=== PATIENT | female | born 1950 | race Caucasian/White ===

== ENCOUNTER → 2018-04-04 10:24 | Outpatient (CLI) | payer OTHER, SELFPAY ==
[2018-04-04 10:51] LABS: Add Manual Diff / Slide Review NO; Basophils Percent Auto 1.3 % (0-2); Eosinophils Percent Auto 2.4 % (2-4); Hemoglobin 15.5 g/dL (12.0-16.0); Lymphocytes Percent Auto 32.3 % (25-40); Mean Corpuscular HGB Conc 33.7 % (30-36); Mean Corpuscular Hemoglobin 31.8 PG (26-34); Mean Corpuscular Volume 94.4 fL (80-100); Neutrophils Absolute Auto 2200 /uL (3000-5900); Platelet Count 294 X10^3/uL (150-400); Red Blood Cell Count 4.87 X10^6/uL (4.0-5.2); Red Cell Distribution Width 13.5 % (11.6-14.8); White Blood Cell Count 4.2 X10^3/uL (4.5-11.0)
[2018-04-04 11:02] LABS: BUN Creatinine Ratio 31.7 (6-22); Blood Urea Nitrogen 19 mg/dL (7-17); Carbon Dioxide 25 mmol/L (22-32); Chloride 104 mmol/L (98-107); Cholesterol 256 mg/dL (140-199); Estimated Glomerular Filt Rate > 60.0 mL/min (>60); Glucose 107 mg/dL (80-110); HDL Cholesterol 84 mg/dL (40-60); HEMOLYSIS < 15 (0-50); LDL Cholesterol Calculated 147 mg/dL (<100); Potassium 4.1 mmol/L (3.4-5.1); Sodium 142 mmol/L (137-145); Triglycerides 124 mg/dL (35-150)
[2018-04-04 11:32] LABS: TSH w/ Reflex to FT4 2.74 uIU/mL (0.47-4.68)
== END ==
PROVIDERS: Family Provider Family Medicine; PCP Family Medicine; Visit Provider Internal Medicine
DX: Z00.00 Encounter for general adult medical examination without abnormal findings (principal); E03.9 Hypothyroidism, unspecified
CPT/HCPCS: 36415; 80048; 80061; 84443; 85025

== ENCOUNTER → 2018-04-10 13:33 | Outpatient (CLI) | payer OTHER, SELFPAY ==
--- NOTE | 2018-04-10 | DI.RAD.S_ITS ---
This blank DEXA report has been sent in error by the PACS system. The correct and the complete report will be forthcoming in 1-2 days. Thank you for your patience and understanding. Dictated by: Abdulkadir Guzman M.D. on 04/10/2018 at 15:34 Approved by: Abdulkadir Guzman M.D. on 04/10/2018 at 15:34
== END ==
PROVIDERS: PCP Internal Medicine; Visit Provider Internal Medicine
DX: M85.832 Other specified disorders of bone density and structure, left forearm (principal); Z78.0 Asymptomatic menopausal state; E07.9 Disorder of thyroid, unspecified; Z87.891 Personal history of nicotine dependence
CPT/HCPCS: 77080

== ENCOUNTER → 2018-07-16 08:41 | Outpatient (CLI) | payer MEDICARE, SELFPAY ==
[2018-07-16 09:55] LABS: Cholesterol 220 mg/dL (140-199); HDL Cholesterol 65 mg/dL (40-60); LDL Cholesterol Calculated 130 mg/dL (<100); Triglycerides 127 mg/dL (35-150)
== END ==
PROVIDERS: PCP Internal Medicine; Visit Provider Internal Medicine
DX: E78.9 Disorder of lipoprotein metabolism, unspecified (principal); E79.9 Disorder of purine and pyrimidine metabolism, unspecified
CPT/HCPCS: 36415; 80061

== ENCOUNTER → 2019-03-27 13:54 | Outpatient (CLI) | payer MEDICARE, SELFPAY ==
[2019-03-27 15:52] LABS: Free T3, Triiodothyronine Free 2.91 pg/mL (2.77-5.27); Free T4, Direct Thyroxine 1.37 ng/dL (0.78-2.19)
== END ==
PROVIDERS: PCP Internal Medicine; Visit Provider Internal Medicine
DX: E03.9 Hypothyroidism, unspecified (principal)
CPT/HCPCS: 36415; 84439; 84443; 84481

== ENCOUNTER → 2019-10-14 12:58 | Outpatient (CLI) | payer MEDICARE, SELFPAY ==
--- NOTE | 2019-10-14 | DI.US.S_ITS ---
LIMITED ULTRASOUND OF LEFT BREAST AND AXILLA: 10/14/2019 CLINICAL: Palpable left breast lump. Comparison is made to exams dated: 10/14/2019 mammogram - [facility], 07/03/2018 mammogram, 08/22/2016 mammogram, and 02/26/2012 mammogram - [facility]. Color flow and real-time ultrasound of the left breast 7 o'clock, and axilla regions were performed. Santana scale images of the real-time examination were reviewed. There is a 2.5 cm x 1.4 cm x 1.3 cm irregular mass with a microlobulated margin in the left breast at 7 o'clock anterior depth 4 cm from the nipple. This irregular mass is heterogeneously echogenic with posterior acoustic shadowing. This correlates as palpated and with mammography findings. Color flow imaging demonstrates that there is increased vascularity. Additionally, an abnormal lymph node is present in the axilla with a cortex thickened to 1.0 cm IMPRESSION: SUSPICIOUS OF MALIGNANCY The 2.5 cm x 1.4 cm x 1.3 cm irregular mass in the left breast is at a moderate suspicion for malignancy. An ultrasound guided biopsy of the main mass and axillary node is recommended. Findings and recommendations were discussed with the patient by telephone at time of exam. This exam was interpreted at Station ID: [id number]. Electronically Signed By: Bridgette layton/:10/14/2019 15:02:00 letter sent: Biopsy Required Ultrasound BI-RADS: 4b Moderate suspicion of malignancy
--- NOTE | 2019-10-14 | DI.MG.S_ITS ---
BILATERAL DIGITAL DIAGNOSTIC MAMMOGRAM 3D/2D WITH AUGMENTATION: 10/14/2019 CLINICAL: Left breast lump. Comparison is made to exams dated: 07/03/2018 mammogram, 08/22/2016 mammogram, and 02/26/2012 mammogram - [facility]. The tissue of both breasts is heterogeneously dense. This may lower the sensitivity of mammography. There is a new irregular asymmetry with an indistinct margin and fine calcifications in the left breast at 7 o'clock anterior depth. This is seen in additional views. This correlates as palpated. No other significant masses, calcifications, or other findings are seen in either breast. Intact bilateral prepectoral implants are present. IMPRESSION: INCOMPLETE: NEEDS ADDITIONAL IMAGING EVALUATION The new irregular asymmetry in the left breast is suspicious. An ultrasound is recommended. This was performed immediately following this exam. This exam was interpreted at Station ID: [id number]. NOTE: For mammograms, a report in lay terms will be sent to the patient. Approximately 15% of breast malignancies will not be visualized mammographically. In the management of a palpable breast mass, a negative mammogram must not discourage biopsy of a clinically suspicious lesion. Electronically Signed By: Bridgette layton/:10/14/2019 14:47:48 ACR BI-RADS Category 0: Incomplete 3340F
--- NOTE | 2019-11-17 11:53 | ONC.MSW ---
Description: New Referral Navigation T/C Reason for Referral-Breast Cancer, Left Activity: Called pt to confirm that we've received her referral, introduce myself as the navigator, and briefly explained the ongoing availability of assistance, support, and resource referrals as needed. Pt has not yet been referred to [facility] for surgical consult. No immediate needs identified at this time, confirmed the initial appt time for , 11/26 at 10:00am, 9:40am check-in time.
== END ==
PROVIDERS: PCP Internal Medicine; Referring Provider Internal Medicine; Visit Provider Internal Medicine
DX: R92.8 Other abnormal and inconclusive findings on diagnostic imaging of breast (principal); N63.24 Unspecified lump in the left breast, lower inner quadrant
CPT/HCPCS: 76642; 77066; G0279

== ENCOUNTER → 2019-11-11 12:32 | Outpatient (CLI) | payer MEDICARE, SELFPAY ==
--- NOTE | 2019-11-11 | PATH_ITS ---
[facility] Accession Number: [id number] . 01 Material submitted: . PART A: breast - LEFT BREAST 7:00 4CMFN PART B: lymph node - LT AXILLARY LYMPH NODE . 02 Diagnosis: A. 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 Specimen laterality: Left. Tumor site: Lower inner quadrant (7 o'clock, 4 cm from nipple). Histologic type: Ductal carcinoma in situ. Architectural pattern: Cribriform and solid. Nuclear grade: Grade III (high). Necrosis: Not identified. Microcalcifications: Present in nonneoplastic tissue. . B. Left Axillary Lymph Node, Biopsy: Invasive carcinoma of the breast with the following features: Procedure: Needle biopsy. Specimen laterality: Left. Tumor site: Left axilla. Submitted as left axillary lymph node (no definite lymph node tissue identified). Tumor size: Approximately 0.6 cm (fragmented core). Histologic type: Invasive carcinoma of no special type (ductal). Histologic grade (Jose histologic score): Glandular score: 3 of 3. Nuclear score: 2 of 3. Mitotic rate: 1 of 3 (suboptimal cytologic/nuclear preservation is obscuring). Overall grade: Grade 2 of 3. Ductal carcinoma in situ: Not identified in this biopsy; please see part A (left breast 7 o'clock 4 cm from nipple). Architectural patterns of DCIS: Cribriform and solid. Nuclear grade of DCIS: Grade 3. Necrosis of DCIS: Not identified. Lymphovascular invasion: Not identified. Microcalcifications: Not identified. Note: No definite lymph node tissue identified; consider possible origin in axillary tail. Biomarkers: Please see microscopic description. V 11/13/2019 1449 Local . 02 Comment: QA by Dr. York. . Results discussed with Dr. Ike Feng's Wheel And Axle Inspector, on 11/13/2019 at approximately 1:46 p.m. . 02 Electronically signed: . Michelle Stevens MD, Pathologist NPI- [id number] . 01 Gross description: . A. Received in formalin and labeled with LT breast 4 cm FN biopsy, are five fragments of correa adipose tissue measuring 1.3 x 0.2 x 0.1 to 0.5 x 0.3 x 0.2 cm. All five fragments are entirely submitted in cassette A1. Collection date and time is listed as 11/11/2019 at 7:00 for an approximate fixation time of 22 hours. B. Received in formalin and labeled with LT axilla biopsy, is one fragment of correa soft tissue, possibly a core biopsy, measuring 1.6 x 0.01 x 0.1 cm. The tissue is entirely submitted in cassette B1. ([id number]) /MRV 11/12/2019 0932 Local . 02 Microscopic: . Immunohistochemistry Results: . Block A1: Myosin: Positive in region of interest. P63: Positive in region of interest. . Part A: The presence of smooth muscle myosin and p63 around the glandular elements of interest supports a diagnosis of ductal carcinoma in situ and mitigates against the presence of invasive carcinoma. . . Block B1: . Ancillary Studies: BRI: Positive. Mammoglobin: Faintly positive. GATA3: Positive. E-cadherin: Positive. . Immunohistochemistry findings support a diagnosis of invasive ductal adenocarcinoma of breast origin. . CAP BREAST BIOMARKER REPORTING TEMPLATE: . Estrogen Receptor (ER) Status: Positive, greater than 90% of tumor nuclei. Average intensity of staining: Strong staining intensity. Primary antibody: SP1 Progesterone Receptor (PgR) Status: Positive, approximately 60% of tumor nuclei. Average intensity of staining: Strong staining intensity. Primary antibody: 1E2 HER2 (by immunohistochemistry): Negative, 1+ Primary antibody: 4B5 . . Cold Ischemia and Fixation Times: Meets requirements in the latest version of the ASCO/CAP guidelines. Testing performed on Block Number: . TECHNICAL NOTE: The scoring criteria for breast biomarkers by immunohistochemistry is based on the current ASCO/CAP guidelines (Alla et al, Arch Pathol Lab Med 2010: 134(6): 907-922 / Dennis AC et al, Arch Pathol Lab Med 2014: 138(2): 241-256). Deparaffinized sections of formalin fixed tissue (along with appropriate positive controls) are incubated with the above antibody(s). Using the automated [place] stainer, tissue is incubated with the designated antibody* which is then localized by a non-biotin, dual polymer detection system. The external controls are reviewed for appropriate reactivity and found to be adequate. Results on the target cell population are indicated above. These tests have not been validated on decalcified tissue. * This test was developed and its performance characteristics determined by [facility]. It has not been cleared or approved by the U.S. Food and Drug Administration. The FDA has determined that such clearance or approval is not necessary. This test is used for clinical purposes. It should not be regarded as investigational or for research. . 02 Pathologist provided ICD-10: C50.912 . 02 CPT . 226611, L95460, 275397, X21438, 488195, 532812, 171806 Performed at: 01 [facility] [address] [place] [address], [place], [place] [id number] MD Av Leigh MD Phone: [phone] Performed at: 02 [facility] [address] [place] [id number] MD Antoinette Simpson MD Phone: [phone]
--- NOTE | 2019-11-11 | DI.MG.S_ITS ---
PROCEDURE: MM DIAGNOSTIC MAMMO UNILAT LT2D COMPARISON: None. INDICATIONS: FINDINGS: IMPRESSION: Dictated by: Mirna Quintana MD, PhD on 11/11/2019 at 15:23 Approved by: Mirna Quintana MD, PhD on 11/11/2019 at 15:23
--- NOTE | 2019-11-11 | DI.US.S_ITS ---
PROCEDURE: US BX BREAST PERC W VAC DEVICE COMPARISON: None. INDICATIONS: Left breast mass FINDINGS: IMPRESSION: Dictated by: Mirna Quintana MD, PhD on 11/11/2019 at 15:23 Approved by: Mirna Quintana MD, PhD on 11/11/2019 at 15:24
--- NOTE | 2019-11-11 | DI.US.S_ITS ---
ULTRASOUND GUIDED BIOPSY LEFT BREAST USING VACUUM DEVICE WITH MARKING DEVICE INSERTED AND POST DIGITAL MAMMOGRAPHIC IMAGIN11/11/2019 CLINICAL: Left axillary node biopsy. PATIENT CONSENT: Risks (minor bleeding, infection, vasovagal reaction and repeat procedure), benefits and alternatives were explained to the patient and written informed consent was obtained. Correlation is made to exams dated: 11/11/2019 ultrasound biopsy, 11/11/2019 mammogram, 10/14/2019 ultrasound, 10/14/2019 mammogram - [facility], 07/03/2018 mammogram, and 08/22/2016 mammogram - [facility]. An ultrasound guided biopsy using real-time ultrasound was performed for the 2.3 cm x 1.7 cm x 1.3 cm irregular shaped mass located in the left breast at 7 o'clock anterior depth 4 cm from the nipple. This was described on the previous ultrasound report. The skin was prepped in the usual manner. Local anesthetic was administered to the access site. A skin moraima was made in the breast. A 13 gauge biopsy needle was placed adjacent to the abnormality under ultrasound guidance. Once the needle was documented to be in the correct location, three cores were obtained using the Mammotome biopsy system. A Vision clip was inserted into the biopsy cavity. A skin adhesive and a sterile dressing were applied to the access site. Post procedure digital mammographic imaging demonstrates the location device at the targeted area. The specimens were sent to the laboratory for pathological analysis. IMPRESSION: ULTRASOUND GUIDED BIOPSY MALIGNANT Ultrasound guided biopsy of the 2.3 cm mass in the left breast at 7 o'clock anterior depth 4 cm from the nipple was successful. Complication with this procedure was implant capsule injured during biopsy with suspected leakage of saline. Complication discussed with patient. Pathology indicates malignant ductal carcinoma in situ (DCIS). Pathology results are concordant with imaging findings. A surgical/oncologic consultation is recommended. Please see separately dictated axillary lymph node biopsy report and pathology. This exam was interpreted at Station ID: [id number]. Mirna Davies M.D. [facility]/:11/14/2019 11:52:31
--- NOTE | 2019-11-11 13:13 | DI.US.S_ITS ---
Patient Name: MEGAN LUA date: 1950 Sex: F Attending Physician: Ike Indications: Date: 11/11/2019 14:33 At the request of: JOHNATHAN FLORES Procedure: US bx breast perc w vac device ULTRASOUND GUIDED BIOPSY LEFT BREAST WITH MARKING DEVICE INSERTED AND POST DIGITAL MAMMOGRAPHIC IMAGING- POST-PROCEDURE IMAGING FOR MARKER PLACEMENT: 11/11/2019 CLINICAL: Left brest mass b/x w/ clip placement. PATIENT CONSENT: Risks (minor bleeding, infection, vasovagal reaction and repeat procedure), benefits and alternatives were explained to the patient and written informed consent was obtained. Correlation is made to exams dated: 11/11/2019 mammogram, 10/14/2019 ultrasound, 10/14/2019 mammogram - [facility], 07/03/2018 mammogram, 08/22/2016 mammogram, and 02/26/2012 mammogram - [facility]. An ultrasound guided biopsy using real-time ultrasound was performed for the 2.5 cm x 2.1 cm x 0.9 cm circumscribed oval lymph node located in the left axilla at 11 o'clock posterior depth. This was described on the previous mammography report. The skin was prepped in the usual manner. Local anesthetic was administered to the access site. A skin moraima was made in the breast. A 20 gauge biopsy needle was placed adjacent to the abnormality under ultrasound guidance. Once the needle was documented to be in the correct location, six specimens were obtained. No clip placement clip was inserted into the biopsy cavity. A skin adhesive and a sterile dressing were applied to the access site. Post procedure digital mammographic imaging was obtained. The specimens were sent to the laboratory for pathological analysis. IMPRESSION: ULTRASOUND GUIDED BIOPSY MALIGNANT Ultrasound guided biopsy of the 2.5 cm x 2.1 cm x 0.9 cm lymph node in the left axilla was successful. Pathology indicates malignant invasive carcinoma. Pathology results are concordant with imaging findings. Continued Report - Page 2 of 2 Patient Name: MEGAN LUA date: 1950 Sex: F Attending Physician: Ike Indications: Date: 11/11/2019 14:33 At the request of: JOHNATHAN FLORES Procedure: US bx breast perc w vac device A surgical/oncologic consultation is recommended. This exam was interpreted at Station ID: [id number]. Mirna Davies M.D. [facility]/:11/14/2019 11:53:25
--- NOTE | 2019-11-11 13:49 | DI.MG.S_ITS ---
Patient Name: MEGAN LUA date: 1950 Sex: F Attending Physician: Ike Indications: Date: 11/11/2019 13:57 At the request of: JOHNATHAN FLORES Procedure: MM diagnostic mammo [id number] UNILATERAL LEFT DIGITAL DIAGNOSTIC MAMMOGRAM POST-NEEDLE BIOPSY: 11/11/2019 CLINICAL: Left breast mass. Comparison is made to exams dated: 10/14/2019 mammogram - [facility], 07/03/2018 mammogram, 08/22/2016 mammogram [facility] and 10/14/2019 [facility]. The tissue of left breast is heterogeneously dense. This may lower the sensitivity of mammography. There is a mass in the left breast seen on the craniocaudal view only. There also is a marker clip in the appropriate position in the left breast at 7 o'clock anterior depth. No other significant masses or calcifications are seen in the breast. IMPRESSION: INCOMPLETE: NEEDS ADDITIONAL IMAGING EVALUATION The mass in the left breast seen on the craniocaudal view only needs additional evaluation. There was a successful marker clip placement in the left breast at 7 o'clock anterior depth. This exam was interpreted at Station ID: [id number]. NOTE: For mammograms, a report in lay terms will be sent to the patient. Approximately 15% of breast malignancies will not be visualized mammographically. In the management of a palpable breast mass, a negative mammogram must not discourage biopsy of a clinically suspicious lesion. Electronically Signed By: Mirna Quintana M.D. [facility]/:11/11/2019 15:13:56 ACR BI-RADS Category 0: Incomplete 3340F
== END ==
PROVIDERS: PCP Internal Medicine; Referring Provider Internal Medicine; Visit Provider Internal Medicine
DX: D05.12 Intraductal carcinoma in situ of left breast (principal); C77.3 Secondary and unspecified malignant neoplasm of axilla and upper limb lymph nodes; Z17.0 Estrogen receptor positive status [ER+]; T85.898A Other specified complication of other internal prosthetic devices, implants and grafts, initial encounter; Y65.8 Other specified misadventures during surgical and medical care
CPT/HCPCS: 19083; 38505; 76942; 77065

== ENCOUNTER → 2019-11-24 09:41 | Oncology outpatient (ONC) | payer MEDICARE, SELFPAY ==
[2019-11-24 10:20] VITALS: BP 124/85; PULSE 79; RESP 18; TEMP 36.6; O2SAT 98
--- NOTE | 2019-11-24 10:29 | P.CONONC_ITS ---
History of Present Illness - Data of Consult Patient: new to practice Consult date: 11/24/19 Requesting Physician: Glen Ramires MD Primary Care Provider: Glen Ramires MD - Consult Narrative Reason for consult: Left breast cancer Narrative: Aracelis Lockhart is a 69 year old female. She has been getting annual mammogram 1-2 years. Her mammogram from 06/2018 was normal. At the beginning of 2019, she felt a little lump in her left breast. She did not seek medical attention until recently. On 10/14/2019, bilateral diagnostic mammogram showed new irregular asymmetry in the left breast at 0700 anterior depth. Limited ultrasound showed a 2.5 x 1.4 x 1.3 cm irregular mass in the left breast at a moderate suspicion for malignancy. An abnormal lymph node was noted in the left axilla with a cortex thickened to 1.0 cm. On 11/11/2019, she underwent ultrasound guided left breast biopsy and axilla core biopsy. Pathology from left breast lesion at 0700 4 cm from nipple showed DCIS, cribrifrom and solid, high nuclear grade. Needle core biopsy from the left axllary node showed invasive carcinoma of no special type (ductal), Grade 2/3 (G3/3, N2/3, M1/3), DCIS not identified, ER+(>90%), MO+(approx 60%), and HER2- (IHC 1+). Clinically, she is almost asymptomatic. She reports good appetite, and good energy. She reports no chest pain, no shortness of breath, no nausea or vomiting, no diarrhea or constipation. She also reports no bone pain. CC: Martina Salas MD Patient reports pain?: No Home Medications and Allergies Home Medications Medication Instructions Recorded Confirmed Type Collagen Plus Vitamin C 1 scoop/day DAILY 11/24/19 11/24/19 History cholecalciferol (vitamin D3) 50 mcg PO DAILY 11/24/19 11/24/19 History [Vitamin D3] levothyroxine 100 mcg PO DAILY 11/24/19 11/24/19 History lutein 20 mg PO DAILY 11/24/19 11/24/19 History vitamin B complex [B-Complex] 1 tab DAILY 11/24/19 11/24/19 History Allergies Allergy/AdvReac Type Severity Reaction Status Date / Time No Known Drug Allergies Allergy Verified 11/24/19 10:20 Medical History - Medical, Surgical, Family History Medical History: Medical History (Last Updated 11/24/19 @ 10:38 by Martina Salas MD) Breast implant status Hypothyroidism Surgical History: Surgical History (Last Updated 11/24/19 @ 10:38 by Martina Salas MD) History of right hip replacement - Social History Smoking Status: Former smoker Substance Use Type: does not use Alcohol Intake Frequency: 0-2 drinks per day Review of Systems - Patient Self-Reported Symptoms SR Constitution: Night Sweats SR Genitourinary issues: Frequent urination All systems PM: reviewed and no additional remarkable complaints except as stated Exam Vital signs: Vital Signs Temp Pulse Resp BP Pulse Ox 11/24/19 10:20 98 F 79 18 124/85 98 Intake and Output 11/23/19 11/24/19 11/24/19 23:59 07:59 15:59 Other: Weight 71.4 kg Patient Weight 11/24/19 23:59 Weight 71.4 kg Narrative: All physical examinations were chaperoned - Constitutional positive no acute distress, positive obese, positive cooperative - Routine HEENT Exam Head: Present: normocephalic, atraumatic Eye: Present: EOMI, PERRL, normal accommodation. Absent: conjunctival icterus ENT: Present: mucous membranes moist - Routine Neck Exam Present: supple. Absent: lymphadenopathy, thyromegaly - Routine Chest/Breast/Axilla Exam Comments: Left breast with implant deflated. A 2x2 cm heart irregular mass palpable at about 0700 hours 2 cm from the nipple. no skin changes, I did not appreciate any palpable lymph nodes in the left axilla; The right breast is without nipple retraction, no skin changes, no palpable lumps, no palpable lymph nodes in the right axilla, right breast implant is intact. - Routine Respiratory Exam Present: Clear to auscultation bilaterally. Absent: accessory muscle use, rales, wheezes - Routine Cardiovascular Exam Present: RRR, S1, S2. Absent: murmur, gallop, rubs - Routine Abdominal Exam Present: soft. Absent: tenderness, distended, organomegaly - Routine Extremities Exam Absent: edema - Routine Neurological Exam Present: alert, oriented X3, CN II-XII intact. Absent: sensory deficit, motor deficit - Routine Psychiatric Exam Present: normal affect, anxious Results - Labs Pending - Imaging Additional studies: Procedures Injection or infusion of other therapeutic or prophylactic substance (11/03/13) Assessment and Plan (1) Malignant neoplasm of lower-inner quadrant of left breast in female, estrogen receptor positive Overview: 69-year-old female with recently diagnosed left breast DCIS and left axillary node invasive ductal carcinoma after needle core biopsies performed on 11/11/2019. Patient initially palpated the lump in the inner lower quadrant of the left breast in early 2019. The biopsy showed left breast 0700 DCIS and left axillary node invasive carcinoma, 0.6 cm, estrogen receptor positive (> 90%), progesterone receptor positive (approximately 60%) and HER2 negative (IHC 1+). Assessment: I explained to the patient about the needle core biopsy results. I talked with her that given all the information we have up until now, she has a left-sided breast cancer which is ER positive, MO positive, HER2 negative, and node positive. I talked with her that the first step is to find out if her breast cancer is localized or has spread to other parts of the body. I would recommend a CT the chest abdomen pelvis given the positive findings in the lymph node. Overall, if her cancer is localized, it is highly treatable and potentially curable. However if it is metastasized, the goal of the therapy would be palliation. Assuming it is a localized breast cancer, I talked with her that the general pathway for treating her breast cancer is surgery, chemotherapy, radiation therapy, and endocrine therapy. Patient has already been scheduled to see Dr. Preciado tomorrow. Patient will talk with Dr. Preciado about her concerns regarding the leaking left breast implant. I talked with her that for chemotherapy, patient will need a port placement. I have recommended port be placed at the same time of her left breast surgery if possible. Plan: CBC, CMP Echo study complete Breast MRI CT CAP w/contrast Visit with Dr. Preciado tomorrow Also recommend port placement at the time of surgery RTC in 2 weeks for follow up visit.
--- NOTE | 2019-12-05 14:39 | ONC.SCHED ---
Called patient to inform of diagnostic imaging studies scheduled per MD orders. Patient stated she was sorry we didn't know, but she is going to be getting her treatment at [facility]. Emailed Patient Navigator to reach out to patient to ensure that all her care is going to be handled through [facility].
== END ==
PROVIDERS: PCP Internal Medicine; Referring Provider Internal Medicine; Visit Provider Internal Medicine Hematology & Oncology
DX: C50.312 Malignant neoplasm of lower-inner quadrant of left female breast (principal); C77.3 Secondary and unspecified malignant neoplasm of axilla and upper limb lymph nodes; T85.43XA Leakage of breast prosthesis and implant, initial encounter; E03.9 Hypothyroidism, unspecified; Z17.0 Estrogen receptor positive status [ER+]; Z87.891 Personal history of nicotine dependence
CPT/HCPCS: 99204; 99214

== ENCOUNTER → 2020-02-08 15:30 | Outpatient (CLI) | payer MEDICARE, SELFPAY ==
[2020-02-09 15:12] LABS: COVID19 Sendout Not Detected (Not Detect)
== END ==
PROVIDERS: PCP Internal Medicine; Visit Provider Physician Assistant
DX: Z01.812 Encounter for preprocedural laboratory examination (principal)
CPT/HCPCS: 87635

== ENCOUNTER → 2020-07-16 08:42 | Outpatient (CLI) | payer MEDICARE, SELFPAY ==
[2020-07-16 09:45] LABS: Cholesterol 247 mg/dL (140-199); HDL Cholesterol 65 mg/dL (40-60); LDL Cholesterol Calculated 157 mg/dL (<100); Triglycerides 127 mg/dL (35-150)
[2020-07-16 10:15] LABS: Free T3, Triiodothyronine Free 2.77 pg/mL (2.77-5.27); Free T4, Direct Thyroxine 1.33 ng/dL (0.78-2.19)
[2020-07-16 10:29] LABS: Thyroid Stimulating Hormone 3.81 uIU/mL (0.47-4.68)
== END ==
PROVIDERS: PCP Internal Medicine; Referring Provider Internal Medicine; Visit Provider Internal Medicine
DX: E03.9 Hypothyroidism, unspecified (principal); E78.9 Disorder of lipoprotein metabolism, unspecified
CPT/HCPCS: 36415; 80061; 84439; 84443; 84481

== ENCOUNTER → 2020-09-27 13:40 | Outpatient (CLI) | payer MEDICARE, SELFPAY ==
[2020-09-27 16:16] LABS: COVID-19 CEPHEID PCR (VTM/NP) Negative (Negative)
== END ==
PROVIDERS: PCP Internal Medicine; Visit Provider Physician Assistant
DX: Z01.812 Encounter for preprocedural laboratory examination (principal); Z20.822 Contact with and (suspected) exposure to COVID-19
CPT/HCPCS: C9803; U0003

== ENCOUNTER 2023-01-05 11:03 | Emergency (ER) | payer MEDICARE, SELFPAY ==
[2023-01-05 11:05] VITALS: BP 145/87; PULSE 101; RESP 15; TEMP 37.1; O2SAT 98; BMI 26.2
--- NOTE | 2023-01-05 11:47 | ED.GENADULT ---
HPI - General Adult General Chief complaint: Upper Respiratory Symptoms Stated complaint: cough all night/sore throat/ T-4/HX fever Time Seen by Provider: 01/05/23 11:28 Source: patient Mode of arrival: Ambulatory History of Present Illness HPI narrative: 72-year-old female who is here for evaluation of approximately 4 days of coughing and sore throat and fevers and sinus congestion. She is no underlying lung pathology. She has tried anti-inflammatories at home to try to help with her fever. She stated that last evening she did not have a fever. Related Data Home Medications Medication Instructions Recorded Confirmed Collagen Plus Vitamin C 1 scoop/day DAILY 11/24/19 11/25/19 cholecalciferol (vitamin D3) 50 50 mcg PO DAILY 11/24/19 11/25/19 mcg (2,000 unit) capsule (Vitamin D3) levothyroxine 100 mcg tablet 100 mcg PO DAILY 11/24/19 11/25/19 lutein 20 mg capsule 20 mg PO DAILY 11/24/19 11/25/19 vitamin B complex (B-Complex 1 tab DAILY 11/24/19 11/25/19 tablet) Previous Rx's Medication Instructions Recorded benzonatate 100 mg capsule 100 mg PO BID PRN cough #20 caps 01/05/23 Allergies Allergy/AdvReac Type Severity Reaction Status Date / Time No Known Drug Allergies Allergy Verified 01/05/23 11:11 Review of Systems Constitutional Constitutional: Reports system reviewed and no additional complaints, except as documented ENT Ears, Nose, Mouth, and Throat: Reports system reviewed and no additional complaints, except as documented Respiratory Respiratory: Reports system reviewed and no additional complaints, except as documented Gastrointestinal Gastrointestinal: Reports system reviewed and no additional complaints, except as documented Integumentary/Breasts Skin/Breast: Reports system reviewed and no additional complaints, except as documented Patient History Medical History (Updated 01/05/23 @ 13:04 by Gibran Lang DO) Breast implant status Hypothyroidism Surgical History History of right hip replacement Family History Father Diabetes mellitus Mother Stroke Social History marital status: household members: spouse Smoking Status: Former smoker alcohol intake: current substance use type: does not use Smoking Status: Former smoker alcohol intake frequency: holidays/special occasions only Substance Use Type: does not use Exam Initial Vital Signs Initial Vital Signs: Vital Signs Temperature 98.7 F 01/05/23 11:05 Pulse Rate 101 H 01/05/23 11:05 Respiratory Rate 15 01/05/23 11:05 Blood Pressure 145/87 H 01/05/23 11:05 Pulse Oximetry 98 01/05/23 11:05 Oxygen Delivery Method Room Air 01/05/23 11:05 HENMT Head: normal to inspection and normocephalic Resp Effort & Inspection: normal respiratory effort Auscultation: clear to auscultation bilaterally Cardio Rate: regular rate Skin General: no rashes or lesions noted Neuro General: patient alert, patient awake, patient oriented x3 and moves all extremities Course Orders Ordered: ED Orders 01/05/23 11:25 Respiratory Panel (Film Array) Stat Strep Grp A by PCR Rapid Stat Throat Culture Stat Vital Signs Vital signs: Vital Signs - 8 hr 01/05/23 11:05 Temperature 98.7 F Pulse Rate 101 H Respiratory Rate 15 Blood Pressure 145/87 H Pulse Oximetry 98 Oxygen Delivery Method Room Air Medical Decision Making Lab Data Lab results reviewed: Yes I reviewed the patient's lab results. Labs: Lab Results 01/05/23 Range/Units 11:25 Chlamy pneumoniae PCR Not detected (Not Detect) Adenovirus (PCR) Not detected (Not Detect) B. pertussis DNA (PCR) Not detected (Not Detecte) B.parapertussis DNA PCR Not detected (Not Detecte) Coronavirus OC43 (PCR) Not detected (Not Detect) Coronavirus HKU1 (PCR) Not detected (Not Detect) Coronavirus 229E (PCR) Not detected (Not Detect) SARS-CoV-2 (PCR) Detected H (Not Detecte) Coronavirus NL63 (PCR) Not detected (Not Detect) Human Metapneumovir PCR Not detected (Not Detect) Influenza Type A (PCR) Not detected (Not Detect) Influenza Type B (PCR) Not detected (Not Detect) M. pneumoniae (PCR) Not detected (Not Detect) Parainfluenza 1 (PCR) Not detected (Not Detect) Parainfluenza 2 (PCR) Not detected (Not Detect) Parainfluenza 3 (PCR) Not detected (Not Detect) Parainfluenza 4 (PCR) Not detected (Not Detect) RSV (PCR) Not detected (Not Detect) Entero/Rhino (PCR) Not detected (Not Detect) Group A Strep (PCR) Negative (Negative) MDM Narrative Medical decision making narrative: Patient is not hypoxic. Has an obvious upper respiratory infection. This is confirmed by the positive COVID result. There was no indication for antibiotics. No indication for admission to the hospital. I did discuss the diagnosis with the patient. We discussed return precautions. She expressed understanding and agreement. Discharge Plan Departure Patient Disposition: Home Clinical Impression: COVID-19 Instructions: COVID-19 Activity Restrictions/Additional Instructions: Continue to take all of your medications as directed. Follow all current CDC guidelines with regard to quarantine. Return to the emergency department for new symptoms like we discussed. Prescriptions: New benzonatate 100 mg capsule 100 mg PO BID PRN (Reason: cough) Qty: 20 0RF No Action levothyroxine 100 mcg Tablet 100 mcg PO DAILY vitamin B complex [B-Complex] Tablet 1 tab DAILY lutein 20 mg Capsule 20 mg PO DAILY cholecalciferol (vitamin D3) [Vitamin D3] 50 mcg (2,000 unit) Capsule 50 mcg PO DAILY Collagen Plus Vitamin C 1 scoop/day DAILY Referrals: Suri Spears MD [Primary Care Provider] - Stand Alone Forms: Patient Portal/API
[2023-01-05 11:55] LABS: Strep Grp A by PCR Rapid Negative (Negative)
[2023-01-05 12:56] LABS: Adenovirus Not Detected (Not Detect); Coronavirus 229E Not Detected (Not Detect); Coronavirus HKU1 Not Detected (Not Detect); Coronavirus NL 63 Not Detected (Not Detect); Coronavirus OC43 Not Detected (Not Detect); Human Metapneumovirus Not Detected (Not Detect); Human Rhinovirus/Enterovirus Not Detected (Not Detect); Influenza A Not Detected (Not Detect); Influenza B Not Detected (Not Detect); Parainfluenza Virus 1 Not Detected (Not Detect); SARS- CoV-2 Detected (Not Detecte)
[2023-01-05 12:57] LABS: B. parapertussis Not Detected (Not Detecte); Bordetella pertussis Not Detected (Not Detecte); Chlamydophila pneumoniae Not Detected (Not Detect); Mycoplasma pneumoniae Not Detected (Not Detect); Parainfluenza Virus 2 Not Detected (Not Detect); Parainfluenza Virus 3 Not Detected (Not Detect); Parainfluenza Virus 4 Not Detected (Not Detect); Respiratory Syncytial Virus Not Detected (Not Detect)
[2023-01-05 13:11] VITALS: BP 155/93; PULSE 85; O2SAT 95
== END 2023-01-05 13:11 | disposition home or self-care (01) ==
PROVIDERS: Emergency Provider Emergency Medicine; PCP Internal Medicine
DX: U07.1 COVID-19 (principal)
CPT/HCPCS: 87070; 87633; 87651; 99281; 99282